=== PATIENT | male | born 1970 | race Caucasian/White ===

== ENCOUNTER 2017-12-10 04:09 | Emergency (ER) | payer OTHER ==
[~2017-12-10] VITALS: Ht 182.9 cm; Wt 83.9 kg
--- NOTE | 2017-12-10 04:10 | NUR ---
Patient to ER bed 8 to gown for evaluation. Side rails up. Report given to MAYCOL OLIVO.
[2017-12-10 04:14] VITALS: BP_SYST 139
--- NOTE | 2017-12-10 04:14 | NUR ---
Patient to ER C/O 04/12 left flank pain. Patient states Hx of kidney stones. States pain started about a week ago, severe since last night, denies N/V. Patient is moaning, AAox4, unlabored breathing, moderate distress d/t pain. No other medical complaints.
--- NOTE | 2017-12-10 04:20 | NUR ---
# 20 gauge angiocath placed to right ac. Use of asceptic technique. Opsite placed over site. Blood return noted. Blood for lab drawn from site. Flushed with 10 cc of normal saline. No evidence of infiltration noted. Patient tolerated well.
--- NOTE | 2017-12-10 04:25 | NUR ---
ER at bedside examining patient.
[2017-12-10] MEDS ORDERED: ONDANSETRON HCL 4 MG/2 ML VIAL IVP ONE (04:30)
[2017-12-10] MEDS ORDERED: MORPHINE 4 MG/ML INJ. SYRINGE IVP ONE (04:30)
[2017-12-10] MEDS ORDERED: KETOROLAC TROMETHAMINE 30 MG VIAL IVP ONE (04:30)
--- NOTE | 2017-12-10 04:41 | NUR ---
Patient off the unit for CT scan via gurney
[2017-12-10] MEDS ORDERED: NACL 0.9% 1,000 ML IV ONE (04:45)
[2017-12-10 04:52] LABS: ANION GAP 13 (5-15); CALCIUM 8.9 mg/dL (8.4-11.0); CHLORIDE 104 mmol/L (98-107); CREATININE 1.47 mg/dL (0.55-1.30); GLUCOSE 97 mg/dL (70-99); POTASSIUM 3.7 mmol/L (3.5-5.1); SODIUM SERUM 141 mmol/L (136-145); UREA NITROGEN, BLOOD 19 mg/dL (8-21)
--- NOTE | 2017-12-10 04:55 | NUR ---
Patient returned from CT scan in stable condition. IV fluids infusing without difficulty, no redness or swelling noted at site. Patient resting quietly in no acute distress, awaiting results and dispo.
[2017-12-10 04:56] LABS: GFR AFRICAN AMERICAN 66 mL/min (>90)
[2017-12-10 04:56] LABS: BILIRUBIN,URINE NEGATIVE (NEGATIVE); CLARITY/URINE CLEAR (CLEAR); COLOR,URINE YELLOW (YELLOW); GLUCOSE,URINE NEGATIVE (NEGATIVE); KETONES,URINE NEGATIVE (NEGATIVE); LEUKOCYTE ESTERASE ,URINE NEGATIVE (NEGATIVE); NITRITE, URINE NEGATIVE (NEGATIVE); PH,URINE 5.5 (5.0-8.0); PROTEIN URINE NEGATIVE (NEGATIVE); UROBILINOGEN,URINE 0.2 (0.2-1.0)
[2017-12-10 04:58] LABS: BLOOD, URINE TRACE (NEGATIVE)
[2017-12-10 05:00] LABS: ALANINE AMINOTRANSFERASE 22 U/L (12-78); ASPARTATE AMINOTRANSFERASE 16 U/L (10-37); LIPASE 129 U/L (73-393); TOTAL BILIRUBIN 1.1 mg/dL (0.0-1.0)
[2017-12-10 05:02] LABS: BASOPHILS % (AUTO) 0.8 % (0.0-2.0); EOSINOPHILS # (AUTO) 0.1 K/uL (0.0-0.4); HEMATOCRIT 41.7 % (36-54); HEMOGLOBIN 14.3 g/dL (14.0-18.0); LYMPHOCYTES # (AUTO) 1.3 K/uL (1.0-5.5); LYMPHOCYTES % (AUTO) 20.4 % (20.5-51.5); MEAN CORPUSCULAR HEMOGLOBIN 31 pg (27-31); MEAN CORPUSCULAR HGB CONC 34 % (32-36); MEAN CORPUSCULAR VOLUME 90 fL (79.0-98.0); MONOCYTES # (AUTO) 0.6 K/uL (0.0-1.0); MONOCYTES % (AUTO) 9.2 % (1.7-9.3); NEUTROPHILS # (AUTO) 4.2 K/uL (1.8-7.7); NEUTROPHILS % (AUTO) 67.6 % (40.0-70.0); PLATELET COUNT (AUTO) 155 K/uL (130-430); RED BLOOD CELL COUNT(AUTO) 4.64 MIL/uL (4.2-6.2); RED CELL DISTRIBUTION WIDTH 11.7 % (9.0-15.0); WHITE BLOOD COUNT (AUTO) 6.2 K/uL (4.8-10.8)
--- NOTE | 2017-12-10 05:23 | NUR ---
Patient calm on gurney. Rated left flank pain to 4/10. No signs of acute distres.
--- NOTE | 2017-12-10 05:34 | NUR ---
ER MD Mccarthy at bedside discussing plan of care with patient and spouse.
[2017-12-10 05:40] LABS: BACTERIA,URINE FEW /HPF (None Seen); WBC,URINE 0-3 /HPF (0-3)
[2017-12-10 05:41] VITALS: BP_SYST 119
--- NOTE | 2017-12-10 05:41 | NUR ---
Patient given written and verbal discharge instructions and verbalizes understanding. ER MD Mccarthy discussed with patient the results and treatment provided. Patient in stable condition. ID arm band removed. IV catheter removed intact and dressing applied, no active bleeding. Rx of ibuprofen, percocet, flomax given. Patient educated on pain management and to follow up with PMD. Pain Scale 0/10. Opportunity for questions provided and answered. Medication side effect fact sheet provided.
== END 2017-12-10 05:41 | disposition home or self-care (01) ==
LOC: SED 04:09
DX: N17.9 Acute kidney failure, unspecified (principal); N23 Unspecified renal colic; Z88.1 Allergy status to other antibiotic agents
CPT/HCPCS: 36415; 74176; 80053; 81000; 83605; 83690; 84484; 85025; 87040; 93005; 96374; 96375; 99285; J1885; J2270; J2405; J7030